=== PATIENT | male | born 1990 | race Caucasian/White ===

== ENCOUNTER 2024-12-01 19:48 | Emergency (ER) | payer MEDICAID ==
[~2024-12-01] VITALS: Ht 180.3 cm; Wt 61.6 kg
[2024-12-01 19:52] VITALS: BP 113/70; PULSE 84; RESP 16; TEMP 97.6; O2SAT 98
--- NOTE | 2024-12-02 06:01 | ELECTROCARDIOGRAPH REPORT ---
[facility] Test Date: 2024-12-01 Test Time: 20:01:24 Pat Name: BHARTI JORDAN Department: EMERGENCY ROOM Patient ID: [id number] Room: Gender: M Philosophy Faculty Member: : 1990 Requested By: STEPHANIE MAN Order Number: [id number] Reading MD: Dr. Lino Brumfield Measurements Intervals [place] Rate: 78 P: 64 ID: [id number] QRS: 64 QRSD: 87 T: 60 QT: 384 QTc: 438 Interpretive Statements Sinus rhythm Anterior infarct, old Electronically Signed On 12-02-2024 18:20:[address] Lino Brumfield Please click the below link to view image of tracing.
== END 2024-12-01 21:58 | disposition left against medical advice (07) ==
LOC: ER 19:49
DX: R07.9 Chest pain, unspecified (principal); Z53.21 Procedure and treatment not carried out due to patient leaving prior to being seen by health care provider
CPT/HCPCS: 93005